=== PATIENT | female | born 1955 | race Caucasian/White ===

== ENCOUNTER 2019-03-17 07:18 | Outpatient (CLI) | payer BC ==
[2019-03-17 10:23] LABS: BASOPHILS # (AUTO) 0.1 10^3/uL (0.0-0.1); BASOPHILS % (AUTO) 1.6 %; EOSINOPHILS # (AUTO) 0.1 10^3/uL (0.0-0.7); EOSINOPHILS % (AUTO) 1.8 %; HGB - HEMOGLOBIN 12.8 g/dL (12.0-16.0); LYMPHOCYTES # (AUTO) 0.8 10^3/uL (1.5-3.5); LYMPHOCYTES % (AUTO) 20.1 %; MEAN CORPUSCULAR HEMOGLOBIN 30.1 pg (27.0-31.0); MEAN CORPUSCULAR HGB CONC 33.2 g/dL (32.0-36.0); MEAN CORPUSCULAR VOLUME 90.9 fL (81.0-99.0); MEAN PLATELET VOLUME 7.7 fL (7.9-10.8); MONOCYTES # (AUTO) 0.4 10^3/uL (0.0-1.0); MONOCYTES % (AUTO) 11.6 %; NEUTROPHILS # (AUTO) 2.5 10^3/uL (1.5-6.6); NEUTROPHILS % (AUTO) 64.9 %; PLT - PLATELET COUNT 367 10^3/uL (130-450); RED BLOOD COUNT 4.24 10^6/uL (4.20-5.40); RED CELL DISTRIBUTION WIDTH 15.3 % (12.0-15.0); WHITE BLOOD COUNT 3.8 x10^3/uL (4.8-10.8)
[2019-03-17 10:37] LABS: HB2 TOTAL 13.8 g/dL; HEMOGLOBIN A1C 0.51 g/dL; HEMOGLOBIN A1C % 5.5 % (4.6-6.2)
[2019-03-17 10:38] LABS: ALBUMIN/GLOBULIN RATIO 1.4 (1.0-2.2); ALKALINE PHOSPHATASE 58 IU/L (42-121); ALT ALANINE AMINOTRANSFERASE 16 IU/L (10-60); AST ASPARTATE AMINOTRANSFERASE 31 IU/L (10-42); BILIRUBIN,TOTAL 0.8 mg/dL (0.2-1.0); BUN - BLOOD UREA NITROGEN 8 mg/dL (6-20); CALCIUM 9.4 mg/dL (8.5-10.3); CARBON DIOXIDE - CO2 27 mmol/L (21-32); CHLORIDE 100 mmol/L (101-111); CHOL/HDL RATIO 4.2 (<4.4); CHOLESTEROL 316 mg/dL; CREATININE 0.6 mg/dL (0.4-1.0); GFR - MDRD 101 (>89); GLUCOSE 101 mg/dL (70-100); HDL CHOLESTEROL 75 mg/dL; LDL CHOLESTEROL,CALCULATED 225 mg/dL; SODIUM 136 mmol/L (135-145); TOTAL PROTEIN 6.9 g/dL (6.7-8.2); VLDL CHOLESTEROL 16 mg/dL
== END 2019-03-17 07:19 | disposition home or self-care (01) ==
LOC: LAB.F 07:18
PROVIDERS: ATTEND Registered Nurse
DX: Z00.00 Encounter for general adult medical examination without abnormal findings (principal)
CPT/HCPCS: 36415; 80053; 80061; 83036; 83721; 84443; 85025

== ENCOUNTER 2019-04-02 16:44 | Outpatient (CLI) | payer BC | END 2019-04-02 16:45 | disposition critical access hospital (66) | LOC: EMS 16:44 | PROVIDERS: ATTEND Surgery | DX: R10.30 Lower abdominal pain, unspecified (principal); M54.5 Low back pain | CPT/HCPCS: A0425; A0427 ==

== ENCOUNTER 2019-04-02 17:17 | Observation (INO) | payer BC ==
[2019-04-02] MEDS ORDERED: KETOROLAC 30 MG/ML VIAL IVP STA (17:52)
--- NOTE | 2019-04-02 18:00 | ED Physician Documentation ---
PD HPI ABD PAIN - Stated complaint Stated Complaint: ABD PX - Chief complaint Chief Complaint: Abd Pain - History obtained from History obtained from: Patient, EMS - History of Present Illness Timing - onset: How many hours ago (2) Timing - duration: Hours (2) Timing - details: Abrupt onset Pain level max: 10 Pain level now: 6 Quality: Aching, Pain Location: Other (L abdomen) Radiation: Left flank Improved by: Meds (fentanyl) Worsened by: Other (nothing) Associated symptoms: No: Fever, Nausea, Vomiting, Hematemesis, Diarrhea, Constipation, Melena, Hematochezia, Dysuria, Hematuria, Chest pain, Dizzy, Near syncope / syncope, Loss of appetite, Weight loss, Vaginal bleeding, Vaginal dc Similar symptoms before: Has not had sx before Recently seen: Not recently seen - Additional information Additional information: s/p 2 femoral hernia surgeries 1 month ago. Review of Systems Constitutional: denies: Fever, Chills Cardiac: denies: Chest pain / pressure Respiratory: denies: Cough GI: denies: Vomiting, Diarrhea, Hematemesis, Bloody / black stool : denies: Dysuria, Frequency, Hesitancy Skin: denies: Rash Musculoskeletal: denies: Neck pain, Back pain Neurologic: denies: Headache PD PAST MEDICAL HISTORY - Past Medical History Past Medical History: Yes - Past Surgical History Past Surgical History: Yes General: Bowel surgery - Present Medications Home Medications: Ambulatory Orders Medication Instructions Recorded Confirmed No Known Home Medications 04/02/19 04/02/19 - Allergies Allergies/Adverse Reactions: Allergies Allergy/AdvReac Type Severity Reaction Status Date / Time No Known Drug Allergies Allergy Verified 04/02/19 17:34 - Social History Does the pt smoke?: No Smoking Status: Never smoker Does the pt drink ETOH?: Yes Does the pt have substance abuse?: No Results - Vitals Vitals: Vital Signs - 24 hr 04/02/19 17:28 Temperature 36.8 C Heart Rate 87 Respiratory 22 Rate Blood Pressure 147/89 H O2 Saturation 100 Oxygen O2 Source Room air - Labs Labs: Laboratory Tests 04/02/19 04/02/19 04/02/19 18:02 18:02 18:50 WBC 4.7 L RBC 4.28 Hgb 12.9 Hct 39.4 MCV 92.0 MCH 30.2 MCHC 32.8 RDW 15.8 H Plt Count 270 MPV 6.9 L Neut # (Auto) 3.7 Lymph # (Auto) 0.6 L [place] # (Auto) 0.3 Eos # (Auto) 0.0 Baso # (Auto) 0.0 Absolute Nucleated RBC 0.00 Nucleated RBC % 0.0 Sodium 130 L Potassium 3.7 Chloride 93 L Carbon Dioxide 22 Anion Gap 15.0 H BUN 8 Creatinine 0.6 Estimated GFR (MDRD) 101 Glucose 143 H Calcium 9.4 Total Bilirubin 0.6 AST 40 ALT 20 Alkaline Phosphatase 54 Total Protein 7.0 Albumin 4.3 Globulin 2.7 Albumin/Globulin Ratio 1.6 Lipase 34 Urine Color YELLOW Urine Clarity CLEAR Urine pH 7.0 Ur Specific [place] <=1.005 Urine Protein NEGATIVE Urine Glucose (UA) NEGATIVE Urine Ketones 15 H Urine Occult Blood TRACE-LYSE Urine Nitrite NEGATIVE Urine Bilirubin NEGATIVE Urine Urobilinogen 0.2 (NORMAL) Ur Leukocyte Esterase SMALL H Urine RBC 0-5 Urine WBC 6-10 H Ur Squamous Epith Cells MOD Squamous H Urine Bacteria Rare Ur Microscopic Review INDICATED Urine Culture Comments NOT INDICATED PD MEDICAL DECISION MAKING - ED course Complexity details: reviewed results, re-evaluated patient, considered d ifferential, d/w patient, d/w family, d/w cardiology consultant ED course: Dr. Hook consulted on this patient approximately 2014, states that he does not feel she has a small bowel obstruction and recommends a Gastrografin challenge. This may take 4-24 hours and given her initial presentation and pain, will place in observation. Discussed the case with Dr. Cook, hospitalist who accepts. This document was made in part using voice recognition software. While efforts are made to proofread this document, sound alike and grammatical errors may occur. Departure - Departure Disposition: ED Place in Observation Clinical Impression: Small bowel obstruction Condition: Stable Discharge Date/Time: 04/02/19 21:26
[2019-04-02 18:07] LABS: EOSINOPHILS % (AUTO) 0.4 %; HGB - HEMOGLOBIN 12.9 g/dL (12.0-16.0); LYMPHOCYTES # (AUTO) 0.6 10^3/uL (1.5-3.5); LYMPHOCYTES % (AUTO) 13.7 %; MEAN CORPUSCULAR HEMOGLOBIN 30.2 pg (27.0-31.0); MEAN CORPUSCULAR HGB CONC 32.8 g/dL (32.0-36.0); MEAN PLATELET VOLUME 6.9 fL (7.9-10.8); MONOCYTES # (AUTO) 0.3 10^3/uL (0.0-1.0); MONOCYTES % (AUTO) 5.7 %; NEUTROPHILS # (AUTO) 3.7 10^3/uL (1.5-6.6); NEUTROPHILS % (AUTO) 79.2 %; PLT - PLATELET COUNT 270 10^3/uL (130-450); RED BLOOD COUNT 4.28 10^6/uL (4.20-5.40); RED CELL DISTRIBUTION WIDTH 15.8 % (12.0-15.0); WHITE BLOOD COUNT 4.7 x10^3/uL (4.8-10.8)
[2019-04-02] MEDS ORDERED: IOVERSOL 320 100 ML VIAL IVP ONE ×2 (18:11→18:51)
[2019-04-02 18:19] LABS: ALBUMIN 4.3 g/dL (3.2-5.5); ALBUMIN/GLOBULIN RATIO 1.6 (1.0-2.2); BILIRUBIN,TOTAL 0.6 mg/dL (0.2-1.0); CALCIUM 9.4 mg/dL (8.5-10.3); CREATININE 0.6 mg/dL (0.4-1.0)
[2019-04-02 19:12] LABS: BILIRUBIN,URINE NEGATIVE (NEGATIVE); GLUCOSE, URINE (UA) NEGATIVE (NEGATIVE); KETONES,URINE (UA) 15 mg/dL (NEGATIVE); LEUKOCYTE ESTERASE, URINE SMALL (NEGATIVE); NITRITE,URINE NEGATIVE (NEGATIVE); OCCULT BLOOD,URINE TRACE-LYSE (NEGATIVE); PROTEIN,URINE NEGATIVE (NEGATIVE); UROBILINOGEN,URINE 0.2 (NORMAL) E.U./dL (NORMAL)
[2019-04-02 19:15] LABS: CLARITY,URINE CLEAR (CLEAR)
--- NOTE | 2019-04-02 19:15 | CT Report ---
Reason: L abd pain Procedure Date: 04/02/2019 Accession Number: [id number] / [id number] Procedure: CT - Abdomen/Pelvis W CPT Code: FULL RESULT: EXAM: CT ABDOMEN AND PELVIS EXAM DATE: 04/02/2019 06:49 PM. CLINICAL HISTORY: Left abdomen pain. COMPARISONS: None. TECHNIQUE: Routine helical CT imaging was performed through the abdomen and pelvis. IV contrast: 100 cc of Optiray 320. Enteric contrast: No. Reconstructions: Coronal and sagittal. In accordance with CT protocol optimization, one or more of the following dose reduction techniques were utilized for this exam: automated exposure control, adjustment of mA and/or KV based on patient size, or use of iterative reconstructive technique. FINDINGS: Lung Bases: Unremarkable. Liver: Normal. No masses. Gallbladder/Bile Ducts: Prominent bile ducts postcholecystectomy. Spleen: Normal. Pancreas: Normal. Adrenal Glands: Normal. Kidneys: Normal. No masses or hydronephrosis. Peritoneal Cavity/Bowel: Dilated fluid-filled proximal small bowel with decompressed distal small bowel concerning for mid small bowel obstruction. No free air or adenopathy. No masses or acute inflammatory process. Nonvisualized appendix. Pelvic Organs: Small amount of free fluid. Visualized reproductive organs in full bladder are unremarkable. Vasculature: No aortic enlargement. Mild atherosclerotic calcification. Bones: Mild S-shaped scoliosis. Other: None. IMPRESSION: Dilated fluid-filled proximal small bowel with decompressed distal small bowel concerning for mid small bowel obstruction, with small amount of free fluid in the pelvis. RADIA
[2019-04-02 19:30] LABS: BACTERIA,URINE Rare /HPF (None Seen); RBC,URINE 0-5 /HPF (0-5); SQUAMOUS EPITHELIAL CELL,UR MOD Squamous (<= Few)
[2019-04-02] MEDS ORDERED: SODIUM CHLORIDE 0.9% 1,000 ML IV ONE (19:41)
[2019-04-02] MEDS ORDERED: SODIUM CHLORIDE FLUSH 0.9% 10 ML SYRINGE IVP PRN (20:04)
[2019-04-02] MEDS ORDERED: HYDROmorphone 1 MG/ML CARPUJECT IVP STA (20:05)
[2019-04-02] MEDS: SODIUM CHLORIDE 0.9% 1,000 ML IV SCH (21:40)
[2019-04-02] MEDS: ONDANSETRON 4 MG/2 ML VIAL IVP PRN (22:06)
[2019-04-02] MEDS: PROCHLORPERAZINE 10 MG/2 ML VIAL IVP PRN (23:27)
[2019-04-02] MEDS: SODIUM CHLORIDE FLUSH 0.9% 10 ML SYRINGE IVP SCH (23:29)
--- NOTE | 2019-04-03 00:34 | CONSULTATION NOTE ---
Referring Provider Name of Referring Provider:: Dr. Malik Louis Consult Date: 04/02/19 Chief Complaint - Chief Complaint Chief Complaint: Nausea vomiting and decreased bowel movements History of Present Illness - Admitted From Admitted From:: Outpatient - History Obtained From Records Reviewed: Yes History obtained from: Patient, , Dr. Handley Exam Limitations: None - History of Present Illness HPI Comment/Other: This 63-year-old female presented to [facility]'s emergency department with a complaint of nausea and vomiting as well as abdominal pain. Importantly the patient had bilateral femoral herniorrhaphies done at [facility] in [place] for incarceration. The patient had an abdominal incision made to ensure that there was no necrotic bowel. This was all done approximately 5 weeks ago. For reasons that are little bit unclear to me the patient has been scared of having a bowel movement and as such has only eaten oatmeal. There has been no other significant food intake. The patient is obviously lost weight with this. The patient states that she did not take any opiate pain medication when she left the hospital. She has not had normal bowel movements and in fact states that she is scared to have one. There has been no problem with her abdominal or groin incisions. History - Past Medical History GI: reports: Other Other Past Medical History: PBO, Umbilical Hernia - Past Surgical History General: reports: Bowel surgery Meds/Allgy - Home Medications Home Medications: Ambulatory Orders Medication Instructions Recorded Confirmed No Known Home Medications 04/02/19 04/02/19 - Allergies Allergies/Adverse Reactions: Allergies Allergy/AdvReac Type Severity Reaction Status Date / Time No Known Drug Allergies Allergy Verified 04/02/19 17:34 Review of Systems - Gastrointestinal Gastrointestinal: reports: Abdominal pain, Constipation, Nausea, Vomiting - Neurological Neurological: reports: General weakness Exam - Vital Signs Reviewed Vital Signs: Yes Vital Signs: Vital Signs x48h Temp Pulse Pulse Resp BP BP Pulse Ox 04/02/19 23:30 36.4 C L 65 18 133/76 H 100 04/02/19 21:33 36.5 C 66 16 124/87 H 99 04/02/19 20:30 70 14 125/85 H 100 04/02/19 17:28 36.8 C 87 22 147/89 H 100 - Physical Exam General Appearance: positive: No acute distress (Very thin 63-year-old female with sunken eyes and bitemporal wasting.) Eyes Bilateral: positive: No lid inflammation, Conjunctivae nml, No scleral icterus ENT: positive: Dry mucous membranes Neck: positive: Trachea midline Respiratory: positive: Chest non-tender, No respiratory distress, Breath sounds nml Cardiovascular: positive: Regular rate & rhythm, No murmur Abdomen: positive: Non-tender (Clearly palpable stool within the right colon on palpation. No peritoneal findings. No distention. No high-pitched bowel sounds.) Skin: positive: Pallor Extremities: positive: Non-tender, Nml appearance (Cachectic.) Neurologic/Psychiatric: positive: Oriented x3, Motor nml, Sensation nml, Depressed mood/affect (There is clearly a level of anxiety that is not explained appropriately here.) Conclusion/Plan - Diagnosis Diagnosis: Phytobezoar (oatmeal) causing small bowel obstruction - Plan Plan: The plan here would be to give either Gastrografin or Gastroview along with water and repeat KUB studies to see whether or not this phytobezoar moves. I would say that approximately 50% of cases the phytobezoar will resolve with conservative therapy. The other 50% of cases surgery may be necessary to milk the contents into the colon and/or perform an excision. I am hoping that this will not be the case here. There is no question in my mind that this patient's behavior is what caused this to occur. I have discussed this with the patient and explained that after we clean her out she needs to eat NORMALLY and avoid the type of behavior that resulted in this obstruction. The tells me that he is a physician and his is a nurse. Consequently, this conversation should make even more sense to them. The fact that for 5 weeks after her operation she has not eaten normally is exceedingly bothersome to me. I wish to thank Dr. Handley and Dr. Butler very much for this consultation and I will continue to follow to see whether or not surgical intervention may be helpful. 45 minutes of [id number] time spent with the patient, the majority of which was spent in discussion, coordination of care, and completion of the requisite paperwork Dinoon disclaimer: This document was created in part using voice recognition technology. Because of the inherent limitations of the system ([employer]'s [employer] Dictate user manual states that the licensee understands that speech recognition is a statistical process and that recognition errors are inherent in the process), occasional same sounding word substitutions and grammatical errors do occur and persist despite proofreading. Please read this document for context. - Lab Results Fish Bones: 04/02/19 18:02 04/02/19 18:02 - Diagnostic Imaging Results Diagnostic Imaging Results: positive: Final report reviewed, Read independently (The patient has fecalization of the bowel contents (also known as the small bowel feces sign) in the distal small bowel which is classic for a phytobezoar causing a small bowel obstruction)
--- NOTE | 2019-04-03 00:47 | HISTORY & PHYSICAL EXAMINATION ---
DATE OF SERVICE: 04/02/2019 Physician: Jennifer Cook MD PRIMARY CARE PROVIDER: None, she feels that she is too healthy to have one. ADMITTING PROVIDER: Jennifer Cook MD CHIEF COMPLAINT: Progressive crampy abdominal pain over the last several days. HISTORY OF PRESENT ILLNESS: This is a isamar lady who is 63 years old and radically changed her diet in the last month because of an incarcerated hernia resulting in a bowel obstruction and emergency surgery in [place]. She was operated on at [facility]. Subsequent to that, she has just been "terrified" of that pain returning. It was a horrible experience. She does not ever want it to happen again. So every time she would eat food that would make her gassy, she would be frightened that her bowel obstruction was coming back. She has been basically eating a high-fiber diet in the form of oatmeal and lots of water, according to her . As a result, she has been having less and less stool. Tried milk of magnesia. That did not work. Then starting two hours before admission, she began having crampy abdominal pain that was agonizing. When she was in the ambulance, she was screaming with pain and given 200 of fentanyl In the emergency room, she continues to scream off and on depending on the crampiness and colicky nature of the pain. She denies fever or chills. No blood in her stool. No emesis. No diarrhea. No syncope. Overall, she regards herself as completely healthy until this episode. PAST MEDICAL HISTORY 1. G8, P7. 2. Appendectomy at the age of 12. 3. Two femoral hernia surgeries month ago at [facility] after incarcerated hernias. ALLERGIES: NO KNOWN DRUG ALLERGIES. MEDICATIONS: None. SOCIAL HISTORY: She was born in [place], been living on [facility] for about 10 years. to her first . She is completely independent with activities of daily living. Never smoked. Rarely drinks alcohol. Maybe a glass of wine at most. No history of recreational substance abuse. FAMILY HISTORY: Dad at 90 of old age. Mom is 87 and healthy. One sister has dietary issues and is overweight, but no high blood pressure, cancer, diabetes, colitis. Seven children are completely healthy. PREVIOUS LEVEL OF FUNCTION: Completely independent with activities of daily living, drives, pays bills, has no cognitive deficits. She uses no durable medical goods. REVIEW OF SYSTEMS: Review of systems was performed. All other review of systems are negative with regard to ENT, cardiac, pulmonary, , joints, skin, psych, endocrine, and [employer]. PHYSICAL EXAMINATION: CONSTITUTIONAL: She is a very thin, pale, middle-aged white female who looks older than stated age. She is 5 feet 8 inches tall and 44 kg. VITAL SIGNS: Temperature is 36.8, pulse 70, blood pressure 125/85, respirations 14, 100% on room air. GENERAL: Mildly anxious, keeps stating that her previous experience was "terrifying" with regard to the surgery. Her then mutters "I think she has PTSD." HEENT: Unremarkable. Normocephalic and atraumatic. Extraocular movements are intact. Sclerae nonicteric. Oral mucosa is pink and moist. NECK: Supple. LUNGS: Clear to auscultation and percussion. No crackles, rhonchi or wheezing. HEART: PMI is normally placed with regular rate and rhythm. No murmurs, rubs or gallops. ABDOMEN: Softly distended. This woman is very easy to examine in that she is very thin. Slightly distended mounded belly with prominence at the right upper quadrant and right mid abdomen. Tympanitic bowel sounds. Moderately tender to palpation, but no rebound or guarding. She is passing flatus, having quite a bit of burping. EXTREMITIES: Quite thin with diminished muscle mass. No clubbing, cyanosis or edema. NEUROLOGIC: She is alert and oriented to person, place and time. Cranial nerves II-XII normal. One not tested. Normal upper and lower extremity strength testing. No tremors. LABORATORY DATA: Sodium 130, potassium 3.7, BUN 8, creatinine 0.6, anion gap 15, random glucose 143. Liver enzymes normal. Albumin 4.3, total protein 7. White cell count is 4.7, hemoglobin 12.9, hematocrit 39.4, platelets 270. Urinalysis has ketones, leukocyte esterase, white cells, squamous cells. No culture will be submitted. IMAGING: Abdomen and pelvis CT has normal lung bases, normal liver, gallbladder, bile ducts, spleen, pancreas, adrenal glands, kidneys. She has a dilated fluid-filled proximal small bowel with decompressed distal small bowel, concerning for mid small bowel obstruction. No free air or adenopathy. No masses or acute inflammatory process. Nonvisualized appendix. Pelvis has a small amount of free fluid. Visualized reproductive organs and a full bladder unremarkable. Mild S-shaped scoliosis. General Surgery has reviewed these films and feels that the patient has severe obstipation with a huge dilated loop of bowel from stool. ASSESSMENT/PLAN 1. Obstipation. General surgery has already seen this patient in consultation. This is in line with her history of changing her diet drastically and fear of another hernia or bowel obstruction occurring. She went from a relatively normal diet high in fruits and vegetables to almost all oatmeal with lots of water in an effort to increase her fiber. Plan: a. Observation status for IV fluids, pain management. b. Attestation that the patient will be discharged within 96 hours. c. Surgery consult obtained with Dr. Hook. 2. Eating disorder in the form of too much oatmeal, fiber, etc. I strongly encouraged the patient to return to her usual diet. Normal amounts of fruits and vegetables, proteins. She does not have to focus on only fiber. 3. FULL CODE STATUS. 4. Deep venous thrombosis prophylaxis will be AUDREY vieyra. TD: 04/02/2019 21:11 KAREN
[2019-04-03] MEDS: HYDROmorphone 0.5 MG/0.5 ML SYRINGE IVP PRN ×2 (02:48→07:50)
[2019-04-03] MEDS: ONDANSETRON 4 MG/2 ML VIAL IVP PRN ×2 (04:58→14:17)
[2019-04-03 05:10] LABS: BASOPHILS # (AUTO) 0.1 10^3/uL (0.0-0.1); BASOPHILS % (AUTO) 0.6 %; HGB - HEMOGLOBIN 13.4 g/dL (12.0-16.0); LYMPHOCYTES # (AUTO) 0.3 10^3/uL (1.5-3.5); LYMPHOCYTES % (AUTO) 2.4 %; MEAN CORPUSCULAR HEMOGLOBIN 30.1 pg (27.0-31.0); MEAN CORPUSCULAR HGB CONC 32.8 g/dL (32.0-36.0); MEAN CORPUSCULAR VOLUME 91.7 fL (81.0-99.0); MEAN PLATELET VOLUME 7.2 fL (7.9-10.8); MONOCYTES # (AUTO) 0.3 10^3/uL (0.0-1.0); MONOCYTES % (AUTO) 2.4 %; NEUTROPHILS # (AUTO) 10.1 10^3/uL (1.5-6.6); NEUTROPHILS % (AUTO) 94.6 %; PLT - PLATELET COUNT 277 10^3/uL (130-450); RED BLOOD COUNT 4.47 10^6/uL (4.20-5.40); RED CELL DISTRIBUTION WIDTH 15.5 % (12.0-15.0); WHITE BLOOD COUNT 10.7 x10^3/uL (4.8-10.8)
[2019-04-03 05:15] LABS: CALCIUM 10.1 mg/dL (8.5-10.3); CREATININE 0.4 mg/dL (0.4-1.0)
[2019-04-03] MEDS: PANTOPRAZOLE 40 MG VIAL IVP SCH (06:36)
[2019-04-03] MEDS: PROCHLORPERAZINE 10 MG/2 ML VIAL IVP PRN (07:20)
[2019-04-03] MEDS ORDERED: METHYLNALTREXONE 12 MG/0.6 ML VIAL SUBQ ONE (08:21)
--- NOTE | 2019-04-03 08:39 | XRAY Report ---
Reason: gastrograffin challenge Procedure Date: 04/03/2019 Accession Number: [id number] / [id number] Procedure: XR - Abdomen 1 View X-Ray CPT Code: 33682 FULL RESULT: EXAM: ABDOMEN RADIOGRAPHY EXAM DATE: 04/03/2019 12:47 AM. CLINICAL HISTORY: Hernia and small bowel obstruction surgery 5 weeks prior. COMPARISON: Abdomen radiograph from 04/03/2019, CT of the abdomen and pelvis from 04/02/2019. TECHNIQUE: 1 view. FINDINGS: Bowel Gas Pattern: There is gastric distention and small bowel dilation throughout the abdomen and pelvis. Small bowel measures up to 4.3 cm in diameter, which is similar to the prior examination. No contrast is identified in the colon. Other: Surgical clips are demonstrated in the right upper abdomen. There appears to be contrast in the urinary bladder. IMPRESSION: Contrast-filled distention of the stomach and moderate small bowel dilation, similar to the prior examination. Findings are concerning for ongoing small bowel obstruction. RADIA
[2019-04-03] MEDS ORDERED: LACTULOSE 10 GM/15 ML BOTTLE PR SCH (09:00)
[2019-04-03] MEDS ORDERED: ENOXAPARIN 40 MG/0.4 ML SYRINGE SUBQ SCH (09:00)
--- NOTE | 2019-04-03 09:29 | PROVIDER PROGRESS NOTE ---
Subjective - General Admit Date: 04/02/19 - Review of Systems General: positive: Other (Slight abdominal distention with oral contrast.) HEENT: positive: No symptoms Pulmonary: positive: No symptoms Cardiovascular: positive: No symptoms Gastrointestinal: positive: Vomiting, Constipation. negative: Nausea, Difficulty swallowing, Flatus, Diarrhea Skin: positive: No symptoms Objective - Patient Data Reviewed Vital Signs: Yes Vital Signs: Vital Signs x48h Temp Pulse Resp BP Pulse Ox 04/03/19 07:15 36.7 C 76 16 126/77 97 04/03/19 04:35 36.6 C 70 16 130/74 100 Weight: Weight 04/01/19 04/02/19 04/03/19 23:59 23:59 23:59 Weight (kg) 44.5 kg Intake & Output: Intake and Output Totals x24h 04/01/19 04/02/19 04/03/19 23:59 23:59 23:59 Intake Total 25 Balance 25 - Lab Results Lab Results: 04/03/19 04:50 04/03/19 04:50 Other Lab Results: Lab Results x24hrs 04/03/19 04/03/19 04/02/19 Range/Units 04:50 04:50 18:50 WBC 10.7 (4.8-10.8) x10^3/uL RBC 4.47 (4.20-5.40) 10^6/uL Hgb 13.4 (12.0-16.0) g/dL Hct 41.0 (37.0-47.0) % MCV 91.7 (81.0-99.0) fL MCH 30.1 (27.0-31.0) pg MCHC 32.8 (32.0-36.0) g/dL RDW 15.5 H (12.0-15.0) % Plt Count 277 (130-450) 10^3/uL MPV 7.2 L (7.9-10.8) fL Neut # (Auto) 10.1 H (1.5-6.6) 10^3/uL Lymph # (Auto) 0.3 L (1.5-3.5) 10^3/uL [place] # (Auto) 0.3 (0.0-1.0) 10^3/uL Eos # (Auto) 0.0 (0.0-0.7) 10^3/uL Baso # (Auto) 0.1 (0.0-0.1) 10^3/uL Absolute Nucleated RBC 0.00 x10^3/uL Nucleated RBC % 0.0 /100WBC Sodium 138 (135-145) mmol/L Potassium 3.4 L (3.5-5.0) mmol/L Chloride 100 L (101-111) mmol/L Carbon Dioxide 24 (21-32) mmol/L Anion Gap 14.0 H (6-13) BUN 6 (6-20) mg/dL Creatinine 0.4 (0.4-1.0) mg/dL Estimated GFR (MDRD) 162 (>89) Glucose 162 H (70-100) mg/dL Calcium 10.1 (8.5-10.3) mg/dL Total Bilirubin (0.2-1.0) mg/dL AST (10-42) IU/L ALT (10-60) IU/L Alkaline Phosphatase (42-121) IU/L Total Protein (6.7-8.2) g/dL Albumin (3.2-5.5) g/dL Globulin (2.1-4.2) g/dL Albumin/Globulin Ratio (1.0-2.2) Lipase (22-51) U/L Urine Color YELLOW Urine Clarity CLEAR (CLEAR) Urine pH 7.0 (5.0-7.5) PH Ur Specific [place] <=1.005 (1.002-1.030) Urine Protein NEGATIVE (NEGATIVE) mg/dL Urine Glucose (UA) NEGATIVE (NEGATIVE) mg/dL Urine Ketones 15 H (NEGATIVE) mg/dL Urine Occult Blood TRACE-LYSE (NEGATIVE) Urine Nitrite NEGATIVE (NEGATIVE) Urine Bilirubin NEGATIVE (NEGATIVE) Urine Urobilinogen 0.2 (NORMAL) (NORMAL) E.U./dL Ur Leukocyte Esterase SMALL H (NEGATIVE) Urine RBC 0-5 (0-5) /HPF Urine WBC 6-10 H (0-5) /HPF Ur Squamous Epith Cells MOD Squamous H (<= Few) Urine Bacteria Rare (None Seen) /HPF Ur Microscopic Review INDICATED Urine Culture Comments NOT INDICATED 04/02/19 04/02/19 Range/Units 18:02 18:02 WBC 4.7 L (4.8-10.8) x10^3/uL RBC 4.28 (4.20-5.40) 10^6/uL Hgb 12.9 (12.0-16.0) g/dL Hct 39.4 (37.0-47.0) % MCV 92.0 (81.0-99.0) fL MCH 30.2 (27.0-31.0) pg MCHC 32.8 (32.0-36.0) g/dL RDW 15.8 H (12.0-15.0) % Plt Count 270 (130-450) 10^3/uL MPV 6.9 L (7.9-10.8) fL Neut # (Auto) 3.7 (1.5-6.6) 10^3/uL Lymph # (Auto) 0.6 L (1.5-3.5) 10^3/uL [place] # (Auto) 0.3 (0.0-1.0) 10^3/uL Eos # (Auto) 0.0 (0.0-0.7) 10^3/uL Baso # (Auto) 0.0 (0.0-0.1) 10^3/uL Absolute Nucleated RBC 0.00 x10^3/uL Nucleated RBC % 0.0 /100WBC Sodium 130 L (135-145) mmol/L Potassium 3.7 (3.5-5.0) mmol/L Chloride 93 L (101-111) mmol/L Carbon Dioxide 22 (21-32) mmol/L Anion Gap 15.0 H (6-13) BUN 8 (6-20) mg/dL Creatinine 0.6 (0.4-1.0) mg/dL Estimated GFR (MDRD) 101 (>89) Glucose 143 H (70-100) mg/dL Calcium 9.4 (8.5-10.3) mg/dL Total Bilirubin 0.6 (0.2-1.0) mg/dL AST 40 (10-42) IU/L ALT 20 (10-60) IU/L Alkaline Phosphatase 54 (42-121) IU/L Total Protein 7.0 (6.7-8.2) g/dL Albumin 4.3 (3.2-5.5) g/dL Globulin 2.7 (2.1-4.2) g/dL Albumin/Globulin Ratio 1.6 (1.0-2.2) Lipase 34 (22-51) U/L Urine Color Urine Clarity (CLEAR) Urine pH (5.0-7.5) PH Ur Specific [place] (1.002-1.030) Urine Protein (NEGATIVE) mg/dL Urine Glucose (UA) (NEGATIVE) mg/dL Urine Ketones (NEGATIVE) mg/dL Urine Occult Blood (NEGATIVE) Urine Nitrite (NEGATIVE) Urine Bilirubin (NEGATIVE) Urine Urobilinogen (NORMAL) E.U./dL Ur Leukocyte Esterase (NEGATIVE) Urine RBC (0-5) /HPF Urine WBC (0-5) /HPF Ur Squamous Epith Cells (<= Few) Urine Bacteria (None Seen) /HPF Ur Microscopic Review Urine Culture Comments - Current Medications Current Medications: Current Medications Generic Name Dose Route Start Last Admin Trade Name Freq PRN Reason Stop Dose Admin Hydromorphone HCl 0.5 mg 04/02/19 20:04 04/03/19 07:50 Dilaudid Inj Syringe IVP 0.5 mg Q2H PRN Administration Pain 8 to 10 Sodium Chloride 1,000 mls @ 100 mls/hr 04/02/19 21:00 04/02/19 21:40 Normal Saline 0.9% IV 100 mls/hr .Q10H YI Administration Ondansetron HCl 4 mg 04/02/19 20:04 04/03/19 04:58 Zofran Inj IVP 4 mg Q6HR PRN Administration Nausea / Vomiting Pantoprazole Sodium 40 mg 04/03/19 07:00 04/03/19 06:36 Protonix IVP 40 mg QDAC YI Administration Prochlorperazine Edisylate 10 mg 04/02/19 20:04 04/03/19 07:20 Compazine Inj IVP 10 mg Q6HR PRN Administration Nausea / Vomiting Sodium Chloride 10 ml 04/03/19 01:00 04/02/19 23:29 Normal Saline Flush 0.9% IVP 10 ml 0100,0900,1700 YI Administration - Physical Exam General Appearance: positive: No acute distress Eyes Bilateral: positive: No lid inflammation, Conjunctivae nml, No scleral icterus ENT: positive: Dry mucous membranes Neck: positive: Trachea midline Respiratory: positive: Breath sounds nml Cardiovascular: positive: Regular rate & rhythm Abdomen: positive: Non-tender, Abnml bowel sounds (Decreased.). negative: No distention, Tenderness, Guarding, Rebound Extremities: positive: Nml appearance Neurologic/Psychiatric: positive: Oriented x3, Motor nml, Sensation nml, Depressed mood/affect Impression/Plan - Problem List Problem List: Hospital day 1 for phytobezoar caused SBO. Trying non-operative approach. Dietary consult for after discharge. If patient does not open up on her own may require operation. Discussed with patient and today.
[2019-04-03] MEDS ORDERED: DIATR MEGLU/DIATRIZOATE SODIUM 120 ML BOTTLE PO ONE (10:19)
[2019-04-03] MEDS ORDERED: IOTHALAMATE MEGLUMINE 250 ML VIAL UR ONE (10:19)
[2019-04-03] MEDS: SODIUM CHLORIDE FLUSH 0.9% 10 ML SYRINGE IVP SCH ×2 (10:30→14:56)
[2019-04-03] MEDS: POLYETHYLENE GLYCOL 3350 17 GM PACKET PO SCH (10:56)
--- NOTE | 2019-04-03 12:06 | XRAY Report ---
Reason: Obstruction Procedure Date: 04/03/2019 Accession Number: [id number] / [id number] Procedure: FL - Barium Enema Single Contrast CPT Code: FULL RESULT: EXAM: BARIUM ENEMA EXAM DATE: 04/03/2019 11:16 AM. CLINICAL HISTORY: Obstipation. For therapeutic Gastrografin enema. COMPARISONS: 04/02/2019 CT scan abdomen and pelvis. TECHNIQUE: Routine Gastrografin enema. Fluoroscopy Time: 4 minutes 52 seconds. Number of Images: 8. FINDINGS: Preliminary grants analyst abdomen shows a markedly distended stomach with Gastrografin. Gastrografin is also seen in proximal and mid small bowel dilated loops. Surgical clips right upper quadrant. Dilute Gastrografin flows freely in a retrograde fashion from rectum to cecum. The entire colon is filled with fecal material. No obstruction is encountered. Postevacuation abdomen image shows contrast within the cecum. IMPRESSION: Therapeutic Gastrografin enema.. RADIA
--- NOTE | 2019-04-03 13:43 | ED Physician Documentation ---
ED Addendum - Addendum Addendum: 04/03/19 13:42 Addendum to ED visit note 04/02/19 Physical Exam - Physical Exam General: positive: No acute distress HEENT: positive: Atraumatic, Moist mucous membranes Neck: positive: Supple w/out meningeal sx Cardiac: positive: Regular Rate, Regular Rhythm Resipratory: positive: Clear to ausultation jose Abdomen: positive: Other (mild diffuse TTP, no peritoneal signs. Incisions are without signs of infection) Back: negative: CVA TTP Extremities: positive: Normal ROM, No pedal edema Skin: positive: Warm and dry Neurologic: positive: Alert and Oriented X 3
--- NOTE | 2019-04-03 18:32 | PROVIDER PROGRESS NOTE ---
Subjective - Prog Note Date Prog Note Date: 04/03/19 Prog Note Time: 18:29 - Subjective Pt reports feeling: No change Subjective: Maria Eugenia complains of diffuse abdominal pain that is cramping. She denies chest pain, diarrhea, bleeding, syncope, or a new cough. Current Medications - Current Medications Current Medications: Active Medications: Hydromorphone HCl (Dilaudid Inj Syringe) 0.5 mg IVP Q2H PRN Sodium Chloride (Normal Saline 0.9%) 1,000 mls @ 100 mls/hr IV .Q10H YI Magnesium Citrate 296 ml PO ONCE ONE Mineral Oil (Mineral Oil Enema) 133 ml RC ONCE YI Ondansetron HCl (Zofran Inj) 4 mg IVP Q6HR PRN Pantoprazole Sodium (Protonix) 40 mg IVP QDAC YI Polyethylene Glycol (Miralax) 17 gm PO DAILY YI Prochlorperazine Edisylate (Compazine Inj) 10 mg IVP Q6HR PRN No Known Home Medications 04/02/19 Objective - Vital Signs/Intake & Output Reviewed Vital Signs: Yes Vital Signs: Vital Signs x48h Temp Pulse Resp BP Pulse Ox 04/03/19 16:00 36.9 C 86 18 130/81 H 100 04/03/19 13:10 36.7 C 64 16 132/78 H 99 Intake & Output: Intake & Output 03/31/19 04/01/19 04/02/19 04/03/19 23:59 23:59 23:59 23:59 Intake Total 25 Output Total 1300 Balance 25 -1300 - Objective General Appearance: positive: Moderate distress, Lethargic Eyes Bilateral: positive: PERRL Eyes: OU Conjunctivae pale ENT: positive: Pharynx nml, Dry mucous membranes Neck: positive: Thyroid nml, No JVD, Trachea midline Respiratory: positive: Chest non-tender, No respiratory distress, Breath sounds nml, Other (diminshed) Cardiovascular: positive: Regular rate & rhythm, No gallop, Systolic murmur Peripheral Pulses: 1+ Radial (R), 1+ Radial (L) Abdomen: positive: Tenderness, Guarding, Abnml bowel sounds, Other (firm, rounded) Back: positive: Nml inspection Skin: positive: No rash, Warm, Dry, Pallor Extremities: positive: Non-tender, Full ROM, Nml appearance, No pedal edema Neurologic/Psychiatric: positive: Oriented x3, CN's nml (2-12), Motor nml, Sensa tion nml, Weakness, Depressed mood/affect Reflexes: Bicep (R): 3+, Bicep (L): 3+ - Lab Results Fish Bones: 04/04/19 05:00 04/04/19 05:00 Other Labs: Lab Results x24hrs 04/03/19 04/03/19 04/02/19 Range/Units 04:50 04:50 18:50 WBC 10.7 (4.8-10.8) x10^3/uL RBC 4.47 (4.20-5.40) 10^6/uL Hgb 13.4 (12.0-16.0) g/dL Hct 41.0 (37.0-47.0) % MCV 91.7 (81.0-99.0) fL MCH 30.1 (27.0-31.0) pg MCHC 32.8 (32.0-36.0) g/dL RDW 15.5 H (12.0-15.0) % Plt Count 277 (130-450) 10^3/uL MPV 7.2 L (7.9-10.8) fL Neut # (Auto) 10.1 H (1.5-6.6) 10^3/uL Lymph # (Auto) 0.3 L (1.5-3.5) 10^3/uL [place] # (Auto) 0.3 (0.0-1.0) 10^3/uL Eos # (Auto) 0.0 (0.0-0.7) 10^3/uL Baso # (Auto) 0.1 (0.0-0.1) 10^3/uL Absolute Nucleated RBC 0.00 x10^3/uL Nucleated RBC % 0.0 /100WBC Sodium 138 (135-145) mmol/L Potassium 3.4 L (3.5-5.0) mmol/L Chloride 100 L (101-111) mmol/L Carbon Dioxide 24 (21-32) mmol/L Anion Gap 14.0 H (6-13) BUN 6 (6-20) mg/dL Creatinine 0.4 (0.4-1.0) mg/dL Estimated GFR (MDRD) 162 (>89) Glucose 162 H (70-100) mg/dL Calcium 10.1 (8.5-10.3) mg/dL Urine Color YELLOW Urine Clarity CLEAR (CLEAR) Urine pH 7.0 (5.0-7.5) PH Ur Specific [place] <=1.005 (1.002-1.030) Urine Protein NEGATIVE (NEGATIVE) mg/dL Urine Glucose (UA) NEGATIVE (NEGATIVE) mg/dL Urine Ketones 15 H (NEGATIVE) mg/dL Urine Occult Blood TRACE-LYSE (NEGATIVE) Urine Nitrite NEGATIVE (NEGATIVE) Urine Bilirubin NEGATIVE (NEGATIVE) Urine Urobilinogen 0.2 (NORMAL) (NORMAL) E.U./dL Ur Leukocyte Esterase SMALL H (NEGATIVE) Urine RBC 0-5 (0-5) /HPF Urine WBC 6-10 H (0-5) /HPF Ur Squamous Epith Cells MOD Squamous H (<= Few) Urine Bacteria Rare (None Seen) /HPF Ur Microscopic Review INDICATED Urine Culture Comments NOT INDICATED - Diagnostic Imaging Diagnostic Imaging Results: positive: Final report reviewed Diagnostic Imaging Comments: EXAM: CT ABDOMEN AND PELVIS EXAM DATE: 04/02/2019 06:49 PM IMPRESSION: Dilated fluid-filled proximal small bowel with decompressed distal small bowel concerning for mid small bowel obstruction, with small amount of free fluid in the pelvis. EXAM: ABDOMEN RADIOGRAPHY EXAM DATE: 04/03/2019 12:47 AM IMPRESSION: Contrast-filled distention of the stomach and moderate small bowel dilation, similar to the prior examination. Findings are concerning for ongoing small bowel obstruction. EXAM: BARIUM ENEMA EXAM DATE: 04/03/2019 11:16 AM FINDINGS: Preliminary dry roaster abdomen shows a markedly distended stomach with Gastrografin. Gastrografin is also seen in proximal and mid small bowel dilated loops. Surgical clips right upper quadrant. Dilute Gastrografin flows freely in a retrograde fashion from rectum to cecum. The entire colon is filled with fecal material. No obstruction is encountered. Postevacuation abdomen image shows contrast within the cecum. IMPRESSION: Therapeutic Gastrografin enema. ABX Reporting Has patient been on IV antibiotics over the past 48 hours?: No Assessment/Plan - Problem List (1) Obstipation Impression: - All imaging indicates ongoing stool impaction - Relistor given x1 to prevent opioid effects - Dr. Chaudhry is thankfully on this case Plan: Continue to monitor for improvement, surgery is following (2) Disordered eating Impression: - Patient denies forcing herself to throw up - Admits to a more restricted diet, mainly oat meal Plan: NPO for now, resume diet as tolerated (3) Protein calorie malnutrition Impression: - Nutrition consulting - Notes to have recent weight loss - Poor eating habits Plan: Develop a eating plan/menu for the patient prior to discharge Qualifiers: Protein-calorie malnutrition severity: moderate Qualified Code(s): E44.0 - Moderate protein-calorie malnutrition (4) Small bowel obstruction Impression: - Evident in early films - Now resolved per latest gastro-graffin challenge per rectum - Status post several stools, also diarrhea - Clear liquid diet started Plan: Encourage ambulation, limit the use of narcotics
[2019-04-03] MEDS: SODIUM CHLORIDE 0.9% 1,000 ML IV SCH (18:56)
[2019-04-03] MEDS ORDERED: MAGNESIUM CITRATE 296 ML BOTTLE PO ONE (19:12)
[2019-04-03] MEDS ORDERED: MINERAL OIL ENEMA 133 ML BOTTLE RC SCH (20:00)
[2019-04-04] MEDS: SODIUM CHLORIDE FLUSH 0.9% 10 ML SYRINGE IVP SCH ×2 (03:27→06:24)
[2019-04-04] MEDS: SODIUM CHLORIDE 0.9% 1,000 ML IV SCH (04:29)
[2019-04-04 05:18] LABS: BASOPHILS % (AUTO) 0.6 %; EOSINOPHILS % (AUTO) 0.2 %; HGB - HEMOGLOBIN 11.3 g/dL (12.0-16.0); LYMPHOCYTES # (AUTO) 0.9 10^3/uL (1.5-3.5); LYMPHOCYTES % (AUTO) 12.8 %; MEAN CORPUSCULAR HEMOGLOBIN 30.9 pg (27.0-31.0); MEAN CORPUSCULAR HGB CONC 33.8 g/dL (32.0-36.0); MEAN CORPUSCULAR VOLUME 91.4 fL (81.0-99.0); MEAN PLATELET VOLUME 7.1 fL (7.9-10.8); MONOCYTES # (AUTO) 0.6 10^3/uL (0.0-1.0); MONOCYTES % (AUTO) 8.6 %; NEUTROPHILS # (AUTO) 5.6 10^3/uL (1.5-6.6); NEUTROPHILS % (AUTO) 77.8 %; PLT - PLATELET COUNT 230 10^3/uL (130-450); RED BLOOD COUNT 3.67 10^6/uL (4.20-5.40); RED CELL DISTRIBUTION WIDTH 15.5 % (12.0-15.0); WHITE BLOOD COUNT 7.1 x10^3/uL (4.8-10.8)
[2019-04-04 05:29] LABS: ALBUMIN 3.3 g/dL (3.2-5.5); ALBUMIN/GLOBULIN RATIO 1.5 (1.0-2.2); BILIRUBIN,TOTAL 0.7 mg/dL (0.2-1.0); CALCIUM 8.2 mg/dL (8.5-10.3); CREATININE 0.5 mg/dL (0.4-1.0); MAGNESIUM 2.5 mg/dL (1.7-2.8); TOTAL PROTEIN 5.5 g/dL (6.7-8.2)
[2019-04-04] MEDS: PANTOPRAZOLE 40 MG VIAL IVP SCH (06:24)
[2019-04-04] MEDS: POLYETHYLENE GLYCOL 3350 17 GM PACKET PO SCH (08:01)
[2019-04-04 08:25] VITALS: BP 109/64
--- NOTE | 2019-04-04 10:48 | Discharge Plan ---
Discharge Plan Disposition: 01 Home, Self Care Condition: Good Prescriptions: Metoclopramide HCl 5 mg PO ACHS #60 tablet Multivitamin W/Minerals [Theragran M] 1 each PO DAILY #30 tablet Psyllium [Metamucil] 1 each PO DAILY #30 packet Diet: Soft Activity Restrictions: Activity as Tolerated Shower Restrictions: No Additional Instructions or Follow Up instructions: You were admitted for a small bowel obstruction and this resolved after using several bowel agents. The suspected cause was bulking foods without enough liquid leading to stool impaction. Other causes can be from inflammatory bowel disease, infection, radiation or malignancy. You will need an upcoming Gastro-intestinal work up to ensure that things are healthy in your colon and to prevent any more events like this. A dietitian met with you and suggested a multivitamin with minerals, sent to the pharmacy. Please drink plenty of fluids. Sometimes as we age, our thirst center is not a precise. Please drink a daily Metomucil, which has been sent to the pharmacy. Please take a medication called Regfidencio to promote bowel motility for the next 15 days. Please see your PCP within one week. Follow-Up Care: Dietitian (Help with health food choices) No Smoking: If you smoke, Please STOP! Call for help.
[2019-04-04] MEDS ORDERED: POTASSIUM CHLORIDE 20 MEQ TABLET PO ONE (11:11)
--- NOTE | 2019-04-04 11:30 | DISCHARGE SUMMARY ---
Discharge Summary Admit Date: 04/02/19 Discharge Date: 04/04/19 Discharging Provider: DANIELA Amaya Primary Care Provider: DANIELA Cleaning Code Status: Attempt Resuscitation Condition at Discharge: Good Discharge Disposition: 01 Home, Self Care - DIAGNOSES Admission Diagnoses: Constipation, unspecified (K59.00) Unsp intestnl obst, unsp as to partial versus complete obst (K56.609) Eating disorder, unspecified (F50.9) Discharge Diagnoses with Status of Each Condition: Obstipation (K59.00) resolved Small bowel obstruction (K56.609) resolved Disordered eating (F50.9) chronic, teaching materials given on healthy eating Protein calorie malnutrition (E46) chronic, dietitian recommended multi-vitamin with minerals, which was sent to the pharmacy Hypokalemia (E87.6) Potassium was 3.1 on the day of discharge, likely due to poor PO intake, and large amounts of BMs. 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 She presented to the ED via EMS after an acute onset of abdominal pain after pushing a heavy bag of animal feed. She is status post a left inguinal hernia repair, complicated by developing a bowel entrapment and was taken back to surgery, 5 weeks ago at [facility] in the [facility]. She has established PCP care with Kennedi Pritchard on 03/11/2019, who removed sutures from her left groin and mid abdomen. At that appointment on 03/11 the patient was thought to have been recovering well and stated, "she is generally feeling well with a good appetite, eats small frequent meals, moves her bowels at least every other day". Once arriving in the ED the patient stated that she was having cramping, agonizing abdominal pain, that radiated into her back. She was witnessed crying out during triage despite receiving IV fentanyl in the ambulance. Upon the admitting provider's exam, Dr. Cook, "the patient noted that the patient had been just terrified of the pain leading up to the initial surgery to reoccur. It was a horrible experience, and she does not want that to ever happen again. So every time she would eat food that would make her gassy, she would be frightened her bowel obstruction was coming back. She has been basically eating a high fiber diet in the form of oatmeal and lots of water, according to her . As a result, she has been having less and less stool, so she tried milk of magnesia, which did not work. Then, starting 2 hours before admission, she began having crampy abdominal pain which was agonizing". On exam, she continued to scream in pain, denied fever, chills, bleeding, black stools, vomiting, diarrhea, or syncope. Labs showed a sodium of 130, potassium 3.7, BUN 8, creatinine 0.6, anion gap 15, glucose 143, liver enzymes normal, albumin 4.3, total protein 7, WBC count 4.7, hemoglobin 12.9, hematocrit 39.4, platelets 270, urinalysis has ketones, leukocyte esterase, white cells, squamous cells and was not of culture quality. An abdomen/pelvic CT showed dilated fluid filled proximal small bowel with decompressed distal small bowel, concerning for mid SBO. No free air or adenopathy. A general surgery consult was made with Dr. Chaudhry, who confirmed the diagnosis of obstipation, and huge dilated loops of bowels from stool burden and agrees to this consult. She was admitted to observation for IV fluids, pain management, and for worrisome findings of this early SBO. - CONSULTS | PROCEDURES Consultations: General surgery- Dr. Chaudhry Procedures: Gastro-graffin challenge - HOSPITAL COURSE Hospital Course: The patient did not need an NG at any time. Her symptoms were managed with IV fluids, IV narcotics, bowel rest and gastro-graffin challenge x2, both orally and per rectum. By the morning of discharge, the patient had a resolution of abdominal pain, was tolerating a diet, and was ambulating freely while smiling. She was anxious to return home with her and medically stable based on symptoms, nursing reports, and labs. Her potassium was noted to be low at 3.1, so she was given 40 mEq orally prior to leaving. A prescription for Reglan just 5mg PO ACHS was prescribed and sent to her pharmacy. Teaching materials on SBO, a healthy diet, and Reglan medication was provided. I encouraged her that more work up for this event was needed, especially with her recent weight loss and recurrent SBO. Such as a GI consult. - ALLERGIES Allergies/Adverse Reactions: Allergies Allergy/AdvReac Type Severity Reaction Status Date / Time No Known Drug Allergies Allergy Verified 04/02/19 17:34 - MEDICATIONS Home Medications: Ambulatory Orders Medication Instructions Recorded Confirmed Metoclopramide HCl 5 mg PO ACHS #60 tablet 04/04/19 Multivitamin W/Minerals [Theragran 1 each PO DAILY #30 tablet 04/04/19 M] Psyllium [Metamucil] 1 each PO DAILY #30 packet 04/04/19 - PHYSICAL EXAM AT DISCHARGE General Appearance: positive: No acute distress, Alert, Anxious Eyes Bilateral: positive: PERRL ENT: positive: Pharynx nml, No signs of dehydration Neck: positive: Thyroid nml, No JVD, Trachea midline Respiratory: positive: Chest non-tender, No respiratory distress, Breath sounds nml Cardiovascular: positive: Regular rate & rhythm, No gallop, Systolic murmur Peripheral Pulses: positive: 2+ Abdomen: positive: Non-tender, No organomegaly, Nml bowel sounds (hyperactive 4 quadrants), Other (soft, flat) Back: positive: Nml inspection Skin: positive: Color nml, No rash, Warm, Dry Extremities: positive: Non-tender, Full ROM, Nml appearance, No pedal edema Neurologic/Psychiatric: positive: Oriented x3, CN's nml (2-12), Motor nml, Sensation nml, Mood/affect nml Reflexes: Bicep (R): 3+, Bicep (L): 3+ - LABS Result Diagrams: 04/04/19 05:00 04/04/19 05:00 - DIAGNOSTIC IMAGING Diagnostic Imaging Results: Final report reviewed Diagnostic Imaging Results Comments: EXAM: CT ABDOMEN AND PELVIS EXAM DATE: 04/02/2019 06:49 PM IMPRESSION: Dilated fluid-filled proximal small bowel with decompressed distal small bowel concerning for mid small bowel obstruction, with small amount of free fluid in the pelvis. EXAM: ABDOMEN RADIOGRAPHY EXAM DATE: 04/03/2019 12:47 AM IMPRESSION: Contrast-filled distention of the stomach and moderate small bowel dilation, similar to the prior examination. Findings are concerning for ongoing small bowel obstruction. EXAM: BARIUM ENEMA EXAM DATE: 04/03/2019 11:16 AM FINDINGS: Preliminary powder compounder abdomen shows a markedly distended stomach with Gastrografin. Gastrografin is also seen in proximal and mid small bowel dilated loops. Surgical clips right upper quadrant. Dilute Gastrografin flows freely in a retrograde fashion from rectum to cecum. The entire colon is filled with fecal material. No obstruction is encountered. Postevacuation abdomen image shows contrast within the cecum. IMPRESSION: Therapeutic Gastrografin enema. - FOLLOW UP Follow Up: Disposition: Home, Self Care Condition: Good Prescriptions: Metoclopramide HCl 5 mg PO ACHS #60 tablet Multivitamin W/Minerals [Theragran M] 1 each PO DAILY #30 tablet Psyllium [Metamucil] 1 each PO DAILY #30 packet Diet: Soft Additional Instructions or Follow Up instructions: You were admitted for a small bowel obstruction and this resolved after using several bowel agents. The suspected cause was bulking foods without enough liquid leading to stool impaction. Other causes can be from inflammatory bowel disease, infection, radiation or malignancy. You will need an upcoming Gastro-intestinal work up to ensure that things are healthy in your colon and to prevent any more events like this. A dietitian met with you and suggested a multivitamin with minerals, sent to the pharmacy. Please drink plenty of fluids. Sometimes as we age, our thirst center is not a precise. Please drink a daily Metomucil, which has been sent to the pharmacy. Please take a medication called Reglan to promote bowel motility for the next 15 days. Please see your PCP within one week, - TIME SPENT Time Spent in Discharge (Minutes): 45
[2019-04-04] MEDS ORDERED: PSYLLIUM PACKET PO SCH (12:00)
[2019-04-04] MEDS ORDERED: METOCLOPRAMIDE 10 MG TABLET PO SCH (12:00)
== END 2019-04-04 11:50 | disposition home or self-care (01) ==
LOC: EDUNIT# → EDBD → ED 17:17 → MS2 20:04
PROVIDERS: ADMIT Specialist; ATTEND Nurse Practitioner
DX: K56.609 Unspecified intestinal obstruction, unspecified as to partial versus complete obstruction (principal); F50.9 Eating disorder, unspecified; E44.0 Moderate protein-calorie malnutrition; E87.6 Hypokalemia; R64 Cachexia; Z68.1 Body mass index [BMI] 19.9 or less, adult; R11.0 Nausea; Z90.49 Acquired absence of other specified parts of digestive tract
CPT/HCPCS: 36415; 74018; 74177; 74270; 80048; 80053; 81001; 83690; 83735; 85025; 96361; 96372; 96374; 96375; 96376; 99283; 99284; A9270; G0378; J1170; J2212; Q9967; 81003; 87086

== ENCOUNTER 2022-08-22 15:05 | Outpatient (CLI) | payer BC, MEDICARE | END 2022-08-22 23:59 | disposition home or self-care (01) | LOC: LAB.S 15:05 | PROVIDERS: ATTEND Physician Assistant | DX: R30.0 Dysuria (principal) | CPT/HCPCS: 87086 ==

== ENCOUNTER 2023-05-27 08:00 | Outpatient (CLI) | payer MEDICARE ==
[2023-05-27 14:32] LABS: BILIRUBIN,URINE NEGATIVE (NEGATIVE); GLUCOSE, URINE (UA) NEGATIVE (NEGATIVE); KETONES,URINE (UA) NEGATIVE (NEGATIVE); LEUKOCYTE ESTERASE, URINE LARGE (NEGATIVE); NITRITE,URINE NEGATIVE (NEGATIVE); OCCULT BLOOD,URINE TRACE-INTA (NEGATIVE); PH,URINE 6.5 PH (5.0-7.5); PROTEIN,URINE NEGATIVE (NEGATIVE); UROBILINOGEN,URINE 0.2 (NORMAL) E.U./dL (NORMAL)
[2023-05-27 14:41] LABS: BACTERIA,URINE Few /HPF (None Seen); CLARITY,URINE SL. CLOUDY (CLEAR); RBC,URINE 0-5 /HPF (0-5); SQUAMOUS EPITHELIAL CELL,UR FEW Squamous (<= Few); WBC,URINE >25 /HPF (0-5)
== END 2023-05-27 23:59 | disposition home or self-care (01) ==
LOC: LAB.S 08:00
PROVIDERS: ATTEND Emergency Medicine
DX: R30.0 Dysuria (principal)
CPT/HCPCS: 81001; 87086

== ENCOUNTER 2023-07-26 08:00 | Outpatient (CLI) | payer MEDICARE | END 2023-07-26 23:59 | disposition home or self-care (01) | LOC: LAB.S 08:00 | PROVIDERS: ATTEND Physician Assistant | DX: R30.0 Dysuria (principal) | CPT/HCPCS: 87077; 87086 ==

== ENCOUNTER 2023-10-31 08:18 | Outpatient (CLI) | payer MEDICARE ==
--- NOTE | 2023-10-31 10:25 | DEXA Report ---
PROCEDURE: Dexa Spine and/or Hip INDICATIONS: POST MENOPAUSAL TECHNIQUE: Dual energy x-ray absorptiometry (DXA) was performed on a [email or web address] System. Regions measur ed are the AP Spine, femoral neck, and if needed forearm. COMPARISON: None FINDINGS: Lumbar Spine: Bone Mineral Density 0.667 g/cm/cm,T score -4.3. Osteoporosis Left Femoral Neck: Bone Mineral Density 0.759 g/cm/cm, T score -2.0. Left Hip: Bone Mineral Density 0.730 g/cm/cm,T score -2.2. Osteopenia (T score greater or equal to -1.0: NORMAL) (T score from -1.1 to -2.4: OSTEOPENIA) (T score less than or equal to -2.5 to: OSTEOPOROSIS) Impression: By WHO criteria, this patient has osteoporosis. Patients with diagnosis of osteoporosis or osteopenia should have regular bone mineral density assess ment. For those eligible for Medicare, routine testing is allowed once every 2 years. Testing frequ ency can be increased for patients who have rapidly progressing disease or for those who are receivin g medical therapy to restore bone mass. Reviewed by: Scott Chung on 10/31/2023 9:23 AM MARIA L Approved by: Scott Chung on 10/31/2023 9:23 AM [facility] Station ID: [id number]
== END 2023-10-31 08:19 | disposition home or self-care (01) ==
LOC: DI 08:18
PROVIDERS: ATTEND Registered Nurse
DX: Z78.0 Asymptomatic menopausal state (principal); M81.0 Age-related osteoporosis without current pathological fracture

== ENCOUNTER 2023-12-06 08:00 | Outpatient (CLI) | payer MEDICARE ==
--- NOTE | 2023-12-06 16:26 | XRAY Report ---
PROCEDURE: Abdomen 2 V INDICATIONS: ABDOMINAL BLOATING TECHNIQUE: 2 views of the abdomen were acquired. COMPARISON: Abdomen plain film imaging 04/03/2019.. FINDINGS: Surgical changes and devices: Surgical clips indicate prior cholecystectomy.. Bowel: No pneumoperitoneum. The bowel gas pattern is normal. Stool load within normal limits. Soft tissues: No masses; visualized solid organ contours appear normal in size. No suspicious abdom inal calcifications. Bones: No suspicious bony abnormalities. IMPRESSION: No acute abdominal pathology. Source of bloating sensation is not identified. Prior cholecystectomy. Reviewed by: Cal Gomez MD on 12/06/2023 4:24 PM PST Approved by: Cal Gomez MD on 12/06/2023 4:24 PM PST Station ID: [id number]
== END 2023-12-06 23:59 | disposition home or self-care (01) ==
LOC: DI.S 08:00
PROVIDERS: ATTEND Internal Medicine
DX: R14.0 Abdominal distension (gaseous) (principal)

== ENCOUNTER 2023-12-09 08:00 | Outpatient (CLI) | payer MEDICARE | END 2023-12-09 23:59 | disposition home or self-care (01) | LOC: LAB.R 08:00 | PROVIDERS: ATTEND Internal Medicine | DX: R19.7 Diarrhea, unspecified (principal) | CPT/HCPCS: 83993; 87045; 87046; 87177; 87209; 87329; 87427; 87493 ==

== ENCOUNTER 2023-12-12 08:00 | Outpatient (CLI) | payer MEDICARE | END 2023-12-12 23:59 | disposition home or self-care (01) | LOC: LAB.R 08:00 | PROVIDERS: ATTEND Internal Medicine | DX: R19.7 Diarrhea, unspecified (principal) | CPT/HCPCS: 83993; 87493 ==

== ENCOUNTER 2023-12-17 07:00 | Outpatient (CLI) | payer MEDICARE ==
[2023-12-19 13:10] LABS: GIARDIA LAMBLIA AG EIA Negative (Negative)
== END 2023-12-17 23:59 | disposition home or self-care (01) ==
LOC: LAB.S 07:00
PROVIDERS: ATTEND Internal Medicine
DX: R19.7 Diarrhea, unspecified (principal)
CPT/HCPCS: 87045; 87046; 87177; 87209; 87329; 87427

== ENCOUNTER 2024-01-27 10:12 | Day surgery (SDC) | payer MEDICARE ==
[2024-01-27] MEDS: LACTATED RINGERS 1,000 ML IV ONE (10:21)
[2024-01-27] MEDS ORDERED: PROPOFOL 500 MG/50 ML 500 MG/50 ML VIAL ONE (10:33)
--- NOTE | 2024-01-27 10:53 | ANESTHESIA ---
Pre-Anesthesia VS, & Labs - Diagnosis screening exam - Procedure colonoscopy Vital Signs: Temp Pulse Resp BP Pulse Ox O2 Flow Rate 36.2 C L 74 18 133/97 H 100 01/27/24 10:22 01/27/24 10:22 01/27/24 10:22 01/27/24 10:22 01/27/24 10:22 Height: 5 ft 4.5 in Weight (kg): 44 kg Body Mass Index: 16.4 BMI Classification: Underweight - NPO >8 hours Last Fluid Intake: prep - Is Patient ?: No Home Medications and Allergies Allergies/Adverse Reactions: Allergies Allergy/AdvReac Type Severity Reaction Status Date / Time No Known Drug Allergies Allergy Verified 01/27/24 10:29 Anes History & Medical History - Anesthetic History Anesthesia Complications: reports: No previous complications - Medical History Cardiovascular: reports: None Pulmonary: reports: None Gastrointestinal: reports: Other (incarcerated hernia 2019) Urinary: reports: None Neuro: reports: None Musculoskeletal: reports: None Endocrine/Autoimmune: reports: None Skin: reports: None Smoking Status: Never smoker Psychosocial: reports: No issues indicated History of Cancer?: No - Surgical History General: reports: Appendectomy, Bowel surgery Exam General: Alert, Oriented x3, Cooperative, No acute distress Dental: WNL Mouth Openin Fingerbreadth Neck Mobility: Normal Mallampati classification: II Thyromental Distance: 4-6 cm Mental/Cognitive Status: Alert/Oriented X3, Normal for patient Plan Anesthesia Type: General, Total IV Consent for Procedure(s) Verified and Reviewed: Yes Code Status: Attempt Resuscitation ASA classification: 2-Mild systemic disease Is this case an emergency?: No
--- NOTE | 2024-01-27 10:53 | ANESTHESIA ---
Pre-Anesthesia VS, & Labs - Diagnosis screening - Procedure colonoscopy Vital Signs: Temp Pulse Resp BP Pulse Ox O2 Flow Rate 36.2 C L 74 18 133/97 H 100 01/27/24 10:22 01/27/24 10:22 01/27/24 10:22 01/27/24 10:22 01/27/24 10:22 Height: 5 ft 4.5 in Weight (kg): 44 kg Body Mass Index: 16.4 BMI Classification: Underweight - NPO Other (prep as directed) - Is Patient ?: No Home Medications and Allergies Allergies/Adverse Reactions: Allergies Allergy/AdvReac Type Severity Reaction Status Date / Time No Known Drug Allergies Allergy Verified 01/27/24 10:29 Anes History & Medical History - Medical History Cardiovascular: reports: None Pulmonary: reports: None Gastrointestinal: reports: Other Urinary: reports: None Musculoskeletal: reports: None Endocrine/Autoimmune: reports: None Skin: reports: None Smoking Status: Never smoker - Surgical History General: reports: Appendectomy, Bowel surgery Plan Anesthesia Type: Total IV Consent for Procedure(s) Verified and Reviewed: Yes Code Status: Attempt Resuscitation
[2024-01-27] MEDS: LACTATED RINGERS 300 ML IV ONE (11:44)
[2024-01-27 11:57] VITALS: O2SAT 100
[2024-01-27 12:16] VITALS: BP 110/70
--- NOTE | 2024-01-27 15:19 | ANESTHESIA POST OP EVALUATION ---
Anesthesia Post Eval - Post Anesthesia Eval Vitals: Last Vital Signs Temp 36.4 C L 01/27/24 12:09 Pulse 68 01/27/24 12:09 Resp 16 01/27/24 12:09 BP 110/70 01/27/24 12:09 Pulse Ox 100 01/27/24 12:09 O2 Flow Rate CV Function Including HR & BP: Stable Pain Control: Satisfactory Nausea & Vomiting: Negative Mental Status: Baseline Respiratory Status: Airway Patent Hydration Status: Satisfactory Anesthesia Complications: None
== END 2024-01-27 10:13 | disposition home or self-care (01) ==
LOC: SDS 10:12
PROVIDERS: ATTEND Surgery
DX: Z12.11 Encounter for screening for malignant neoplasm of colon (principal); K64.1 Second degree hemorrhoids
CPT/HCPCS: G0121; J7120

== ENCOUNTER 2024-02-21 10:46 | Outpatient (CLI) | payer MEDICARE ==
[2024-02-21 15:13] LABS: BASOPHILS % (AUTO) 0.9 %; EOSINOPHILS # (AUTO) 0.1 10^3/uL (0.0-0.7); EOSINOPHILS % (AUTO) 2.9 %; HCT - HEMATOCRIT 38.6 % (37.0-47.0); HGB - HEMOGLOBIN 12.6 g/dL (12.0-16.0); LYMPHOCYTES % (AUTO) 22.7 %; MEAN CORPUSCULAR HEMOGLOBIN 30.5 pg (27.0-31.0); MEAN CORPUSCULAR HGB CONC 32.6 g/dL (32.0-36.0); MEAN CORPUSCULAR VOLUME 93.5 fL (81.0-99.0); MEAN PLATELET VOLUME 9.7 fL (7.9-10.8); MONOCYTES # (AUTO) 0.4 10^3/uL (0.0-1.0); MONOCYTES % (AUTO) 8.8 %; NEUTROPHILS # (AUTO) 2.9 10^3/uL (1.5-6.6); NEUTROPHILS % (AUTO) 64.5 %; PLT - PLATELET COUNT 245 10^3/uL (130-450); RED BLOOD COUNT 4.13 10^6/uL (4.20-5.40); RED CELL DISTRIBUTION WIDTH 14.4 % (12.0-15.0); WHITE BLOOD COUNT 4.4 x10^3/uL (4.8-10.8)
[2024-02-21 15:37] LABS: % IRON SATURATION 19 % (20-50); ALBUMIN 4.2 g/dL (3.2-5.5); ALBUMIN/GLOBULIN RATIO 1.5 (1.0-2.2); ALKALINE PHOSPHATASE 49 IU/L (42-121); ALT ALANINE AMINOTRANSFERASE 16 IU/L (10-60); AST ASPARTATE AMINOTRANSFERASE 28 IU/L (10-42); BILIRUBIN,TOTAL 0.4 mg/dL (0.2-1.0); BUN - BLOOD UREA NITROGEN 6 mg/dL (6-20); CALCIUM 9.6 mg/dL (8.5-10.3); CARBON DIOXIDE - CO2 30 mmol/L (21-32); CHLORIDE 101 mmol/L (101-111); CHOL/HDL RATIO 3.6 (<4.4); CHOLESTEROL 272 mg/dL; CREATININE 0.6 mg/dL (0.6-1.3); GFR - MDRD 100 (>89); GLUCOSE 97 mg/dL (74-104); HDL CHOLESTEROL 75 mg/dL; IRON 67 ug/dL (50-212); LDL CHOLESTEROL,CALCULATED 173 mg/dL; LDL/HDL RATIO 2.3 (<4.4); POTASSIUM 3.9 mmol/L (3.5-4.5); SODIUM 135 mmol/L (135-145); TOTAL IRON BINDING CAPACITY 344 ug/dL (250-450); TRANSFERRIN 246 mg/dL (203-362); TRIGLYCERIDES 118 mg/dL (48-352); VLDL CHOLESTEROL 24 mg/dL
[2024-02-21 15:48] LABS: THYROID STIMULATING HORMONE 2.21 uIU/mL (0.34-5.60)
[2024-02-21 15:53] LABS: FERRITIN 20.5 ng/mL (11.0-306.8)
== END 2024-02-21 10:47 | disposition home or self-care (01) ==
LOC: LAB.S 10:46
PROVIDERS: ATTEND Registered Nurse
DX: E04.9 Nontoxic goiter, unspecified (principal); R63.4 Abnormal weight loss; R53.83 Other fatigue; Z13.228 Encounter for screening for other metabolic disorders; Z13.220 Encounter for screening for lipoid disorders; Z13.0 Encounter for screening for diseases of the blood and blood-forming organs and certain disorders involving the immune mechanism
CPT/HCPCS: 36415; 80053; 80061; 82306; 82728; 83540; 83721; 84436; 84443; 84466; 84480; 85025

== ENCOUNTER 2024-03-12 10:37 | Outpatient (CLI) | payer MEDICARE ==
[2024-03-12] MEDS ORDERED: DIATRIZOATE MEGLU/DIATRIZO SOD 30 ML BOTTLE PO ONE (10:48)
[2024-03-12] MEDS ORDERED: iohexoL-300 100 ML VIAL ONE (10:48)
[2024-03-12] MEDS: iohexoL-300 100 ML VIAL IVP ONE (13:12)
[2024-03-12] MEDS: DIATRIZOATE MEGLU/DIATRIZO SOD 30 ML BOTTLE PO ONE (13:13)
--- NOTE | 2024-03-12 19:34 | CT Report ---
PROCEDURE: Abdomen/Pelvis W INDICATIONS: ABD BLOATING CONTRAST: Omni 300 100ml TECHNIQUE: After the administration of intravenous contrast, a CT scan of the abdomen and pelvis was performed. Images were recorded and evaluated at appropriate window settings. Reformats: coronal and sagittal. F or radiation dose reduction, the following was used: automated exposure control, adjustment of mA and /or kV according to patient size. COMPARISON: Radiograph 12/06/2023. FINDINGS: Image quality: Diagnostic. Lower chest: Unremarkable. Liver: No solid mass. Gallbladder and biliary tree: Surgically absent. No biliary dilation, accounting for post-cholecystec john state. Spleen: No splenomegaly. Pancreas: No pancreatic ductal dilation. 5 mm hypoattenuating lesion in the uncinate process (series 2, image 60). Adrenals: No adrenal nodule. Kidneys and ureters: No hydronephrosis. No renal cystic lesion which requires follow up. No solid mas s. Stomach, bowel and peritoneum: No bowel distension. No pathologic free fluid. No significant divertic ular disease. Lymph nodes: No central or retroperitoneal adenopathy. Vessels: No infrarenal aortic aneurysm. PELVIS Reproductive organs: Ovaries not well visualized due to paucity of visceral fat. Normal atrophy of th e uterus. Bladder: No abnormal wall thickening, accounting for underdistention. Pelvic lymph nodes: No pelvic adenopathy by size criteria. Bones: No aggressive osseous abnormality. Mild leftward curvature of the spine. Other: No significant ventral or inguinal hernia. IMPRESSION: 5 mm hypoattenuating lesion in the uncinate process of the pancreas, without associated ductal dilati on. Findings favor a side branch IPMN. Recommend MRI for complete characterization, per ACR consensus guidelines. No acute findings to explain the patient's bloating. Reviewed by: Deep Linares MD on 03/12/2024 7:32 PM PDT Approved by: Deep Linares MD on 03/12/2024 7:32 PM PDT Station ID: [id number]
--- NOTE | 2024-03-12 19:56 | Ultrasound Report ---
PROCEDURE: Soft Tissue Head or Neck INDICATIONS: ENLARGED THYROID TECHNIQUE: Real-time scanning was performed of the thyroid gland, with image documentation. COMPARISON: None FINDINGS: Right: Thyroid lobe measures 5.2 x 1.6 x 2.3 cm, and is homogeneous in echotexture. Left: Thyroid lobe measures 4.2 x 1.1 x 1.4 cm, and is homogenous in echotexture. Isthmus: 0.13 cm thick. Nodule number: One Location: Right Size: 2.7 x 1.7 x 1.9 cm. Composition: Mixed cystic and solid (1 point). Echogenicity: Isoechoic (1 point). Shape: wider than tall (0 points). Margins: Smooth (0 points). Echogenic foci: None (0 points). Total points: 2 ACR TI-RADS category: TI-RADS 2: Not suspicious. IMPRESSION: Benign-appearing thyroid category 2 nodule. No follow-up. ACR TI-RADS definitions and recommendations: TI-RADS 1 (benign): 0 points. FNA not needed. TI-RADS 2 (not suspicious): 2 points. FNA not needed. TI-RADS 3 (mildly suspicious): 3 points. "FNA if 2.5 cm or larger, follow up if 1.5 cm or larger (at 1, 3, and 5 years). TI-RADS 4 (moderately suspicious): 4-6 points. "FNA if 1.5 cm or larger, follow up if 1 cm or larger (at 1, 2, 3, and 5 years). TI-RADS 5 (highly suspicious): 7 points or more. "FNA if 1 cm or larger, follow up if 0.5 cm or larger (every year for 5 years). Reviewed by: Bebo Corbett MD on 03/12/2024 6:54 PM JENNIFER Approved by: Bebo Corbett MD on 03/12/2024 6:54 PM [id number] Station ID: [id number]
== END 2024-03-12 10:38 | disposition home or self-care (01) ==
LOC: DI 10:37
PROVIDERS: ATTEND Registered Nurse
DX: R53.83 Other fatigue (principal); R14.0 Abdominal distension (gaseous); R19.7 Diarrhea, unspecified; Z87.19 Personal history of other diseases of the digestive system; E04.1 Nontoxic single thyroid nodule; R93.89 Abnormal findings on diagnostic imaging of other specified body structures
CPT/HCPCS: 74177; 76536; Q9963; Q9967

== ENCOUNTER 2024-04-02 07:05 | Outpatient (CLI) | payer MEDICARE ==
[2024-04-02] MEDS ORDERED: GADOTERATE MEGLUMINE 5 MMOL/10 ML VIAL ONE (07:06)
[2024-04-02 07:51] LABS: CREATININE 0.7 mg/dL (0.6-1.3)
[2024-04-02] MEDS: GADOTERATE MEGLUMINE 5 MMOL/10 ML VIAL IVP ONE (09:56)
--- NOTE | 2024-04-02 12:55 | MRI Report ---
PROCEDURE: Abdomen W/WO INDICATIONS: PANCREATIC LESION CONTRAST: clariscan 8.6 ml TECHNIQUE: Coronal ultra fast SE, axial 2D spoiled GE in- and [id number]; axial breath-hold T2 fast SE. Dynam ic axial ultra fast GE during the administration of contrast; post-contrast coronal ultra fast GE or 2D spoiled GE with fat saturation from the hepatic dome to the iliac crests. Optional diffusion weig hted imaging and ADC may be performed. COMPARISON: CT 03/12/2024. CT 04/02/2019. FINDINGS: Image quality: Excellent. Lung bases and heart: Unremarkable. Liver: No solid mass. Gallbladder and biliary tree: Surgically absent. No biliary dilation, accounting for post-cholecystec john state. Spleen: No splenomegaly. Pancreas: 5 mm T2 hyperintense cystic lesion in the uncinate process of the pancreas (series 5, image 20). Probable connection to the pancreatic duct. Adrenals: No adrenal nodule. Kidneys and ureters: No hydronephrosis. No renal cystic lesion which requires follow up. No solid mas s. Bowel and peritoneum: No bowel distension. No pathologic free fluid. Lymph nodes: No central or retroperitoneal adenopathy. Vessels: No infrarenal aortic aneurysm. Bones: No aggressive osseous abnormality. Other: No significant ventral hernia. IMPRESSION: 5 mm T2 hyperintense cystic lesion in the uncinate process with probable connection to the pancreatic duct. No pancreatic ductal dilation. Findings favor a side branch IPMN. Recommend two-year follow-up with MRI. Reviewed by: Deep Linares MD on 04/02/2024 12:54 PM PDT Approved by: Deep Linares MD on 04/02/2024 12:54 PM PDT Station ID: [id number]
== END 2024-04-02 07:06 | disposition home or self-care (01) ==
LOC: LAB 07:05
PROVIDERS: ATTEND Registered Nurse
DX: K86.9 Disease of pancreas, unspecified (principal)
CPT/HCPCS: 36415; 74183; 82565; A9575

== ENCOUNTER 2024-07-08 08:00 | Outpatient (CLI) | payer MEDICARE ==
[2024-07-08 14:41] LABS: BILIRUBIN,URINE NEGATIVE (NEGATIVE); GLUCOSE, URINE (UA) NEGATIVE (NEGATIVE); KETONES,URINE (UA) NEGATIVE (NEGATIVE); LEUKOCYTE ESTERASE, URINE SMALL (NEGATIVE); OCCULT BLOOD,URINE MODERATE (NEGATIVE); PROTEIN,URINE NEGATIVE (NEGATIVE); UROBILINOGEN,URINE 1 (NORMAL) E.U./dL (NORMAL)
[2024-07-08 14:47] LABS: CLARITY,URINE HAZY (CLEAR)
[2024-07-08 14:48] LABS: BACTERIA,URINE Rare /HPF (None Seen); RBC,URINE 0-5 /HPF (0-5); SQUAMOUS EPITHELIAL CELL,UR RARE Squamous (<= Few)
== END 2024-07-08 23:59 | disposition home or self-care (01) ==
LOC: LAB.R 08:00
PROVIDERS: ATTEND Emergency Medicine
DX: R30.0 Dysuria (principal)
CPT/HCPCS: 81001; 81003; 87086